=== PATIENT | female | born 1990 | race African-American/Black ===

== ENCOUNTER 2017-08-07 11:03 | Emergency (ER) | payer SELFPAY ==
[~2017-08-07] VITALS: Ht 162.6 cm; Wt 81.5 kg
[~2017-08-07 11:03] MED LIST: FERR325T PO; PRENCAP6 PO
[2017-08-07 11:04] VITALS: BP 107/90; PULSE 114; RESP 18; TEMP 100.2; O2SAT 97
[2017-08-07] MEDS ORDERED: ACETAMINOPHEN 325 MG TAB PO ONE (12:15)
--- NOTE | 2017-08-07 12:15 | PD ---
HPI Chief Complaint: Cold / Flu Symptoms Time Seen by Provider: 12:01 Travel History International Travel<30 days: No Contact w/Intl Traveler<30days: No Traveled to known affect area: No History of Present Illness HPI 27-year-old female that presents to the ED for evaluation of cold-like symptoms. Patient has had symptoms since this morning. Per patient she's had sore throat, cough and congestion. She is concerned she may be having the flu as is going around. She denies any actual sick contacts. No chest pain or shortness of breath. No abdominal pain. No nausea or vomiting. She was taken anything for this. Did not get a flu shot this year. No history of asthma. No other medical issues at this time. PFSH Past Medical History ?: Not LMP: on now Social History Alcohol Use: No Tobacco Use: No Allergies-Medications (Allergen,Severity, Reaction): Coded Allergies: No Known Allergies (Unverified Adverse Reaction, Unknown, 08/07/17) Reported Meds & Prescriptions Reported Meds & Active Scripts Active Review of Systems Except as stated in HPI: all other systems reviewed are Neg Physical Exam Narrative GENERAL: Well-nourished, well-developed patient in no apparent distress. SKIN: Warm and dry. HEAD: Atraumatic. Normocephalic. EYES: Pupils equal and round reactive to light and accommodation. No scleral icterus. No injection or drainage. ENT: No nasal bleeding or discharge. Mucous membranes pink and moist. TMs are clear with no sign of infection or perforation. No mastoid tenderness. Ear canals are intact bilaterally. No lymphadenopathy. Nostril mucosa is red and moist with clear mucus noted. No sinus tenderness to palpation noted. Tonsils are not enlarged or swollen. No ulvua Deviation. Tongue is midline. NECK: Trachea midline. No JVD. No meningeal signs noted CARDIOVASCULAR: Regular rate and rhythm. RESPIRATORY: No accessory muscle use. Clear to auscultation. Breath sounds equal bilaterally. GASTROINTESTINAL: Abdomen soft, non-tender, nondistended. Hepatic and splenic margins not palpable. MUSCULOSKELETAL: Extremities without clubbing, cyanosis, or edema. No obvious deformities. NEUROLOGICAL: Awake and alert. No obvious cranial nerve deficits. Motor grossly within normal limits. Five out of 5 muscle strength in the arms and legs. Normal speech. PSYCHIATRIC: Appropriate mood and affect; insight and judgment normal. Data Data Last Documented VS Vital Signs Date Time Temp Pulse Resp B/P (MAP) Pulse Ox O2 Delivery O2 Flow Rate FiO2 08/07/17 11:04 100.2 114 18 107/90 (96) 97 Room Air Orders Orders Influenzae A/B Antigen (08/07/17 11:14) Group A Rapid Strep Screen (08/07/17 11:14) Acetaminophen (Tylenol) (08/07/17 12:15) Strep Culture (Group A) (08/07/17 11:22) MDM Medical Decision Making Medical Screen Exam Complete: Yes Emergency Medical Condition: Yes Medical Record Reviewed: Yes Interpretation(s) influenza and strep negative Differential Diagnosis Pharyngitis versus strep throat versus URI versus influenza Narrative Course 27-year-old female that presents to the ED for evaluation of cold like symptoms. Patient was properly examined and was found to have signs and symptoms consistent with appears to be likely pharyngitis versus influenza. We' ll do test for both. This x-ray was done over in triage. Test showed negative for acute disease. Patient was reassured. This time I believe the patient likely has a viral illness. Cover with antibiotic. Patient will be given amoxicillin, Medrol Dosepak and Magic mouthwash. Told to follow up with PCP. See ED if worsening symptoms. Diagnosis Primary Impression: Pharyngitis, acute Qualified Codes: J02.9 - Acute pharyngitis, unspecified Patient Instructions: General Instructions Departure Forms: School Release, Return to School Date: Aug 09, 2017 Tests/Procedures Additional Instructions: Motrin and Tylenol for pain and fever. You can use [id number] antihistamine as well as well as Mucinex as needed for runny nose and congestion. Cough drops for cough as needed. Drink plenty of fluids. Follow-up with PCP. See ED for worsening symptoms. Med/Other Pt SpecificInfo: Prescription(s) given Scripts Wdazwnae-Wfhsxxhgilrlknz-Vkzmopnbt Liq (Magic Mouthwash Adult Liq) 120 Ml Susp 5 ML SWISH-SWAL ACHS for Mouth sores, #120 ML 0 Refills Each 5mL contains: Nystatin 200,000units, Diphenhydramine 4.25mg, Viscous Lidocaine 10mg, Cottrell syrup 0.8 mL Prov: Brandon Mallory MD 08/07/17 Amoxicillin (Amoxicillin) 875 Mg Tab 875 MG PO BID for Infection for 10 Days, #20 TAB 0 Refills Prov: Brandon Mallory MD 08/07/17 Methylprednisolone Dosepak (Medrol Dosepak) 4 Mg Dspk 4 MG PO DIRECTED, #1 DSPK 0 Refills Per Pharmacist direction Prov: Brandon Mallory MD 08/07/17 Disposition: 01 DISCHARGE HOME Condition: Stable Ole Sheehan Aug 07, 2017 12:15
[2017-08-07] MEDS ORDERED: MAGICADU2 SWISH-SWAL (12:40)
[2017-08-07] MEDS ORDERED: AMOX875T PO (12:40)
[2017-08-07] MEDS ORDERED: MEDR4PAK PO (12:40)
[2017-08-07 14:03] VITALS: RESP 16
== END 2017-08-07 14:04 | disposition home or self-care (01) ==
LOC: NEPK 11:03
DX: J02.9 Acute pharyngitis, unspecified (principal)
CPT/HCPCS: 87081; 87804; 87880; 99283